=== PATIENT | male | born 1990 | race Caucasian/White ===

== ENCOUNTER 2023-12-22 17:45 | Emergency (ER) | payer OTHER ==
[~2023-12-22] VITALS: Ht 180.3 cm; Wt 87.1 kg
[2023-12-22] MEDS ORDERED: NAPR-56 PO (19:28)
[2023-12-22 19:33] VITALS: BP 122/74; PULSE 80; RESP 16; TEMP 98.6; O2SAT 98
== END 2023-12-22 19:35 | disposition home or self-care (01) ==
LOC: ER 17:46
DX: S93.402A Sprain of unspecified ligament of left ankle, initial encounter (principal); X58.XXXA Exposure to other specified factors, initial encounter; Y93.89 Activity, other specified; Y92.89 Other specified places as the place of occurrence of the external cause; Y99.8 Other external cause status
CPT/HCPCS: 73610; 99284; A6449